=== PATIENT | male | born 1965 | race Caucasian/White ===

== ENCOUNTER 2022-08-06 00:47 | Day surgery (SDC) | payer BC, SELFPAY ==
[2022-07-23 16:03] VITALS: BMI 32.2
[2022-08-06 10:04] VITALS: BP 131/77; PULSE 72; RESP 18; TEMP 36.4; O2SAT 97; BMI 31.8
[2022-08-06] MEDS: LACTATED RINGERS 1,000 ML 150 ML IV CONT (10:16)
--- NOTE | 2022-08-06 10:37 | P.HP_ITS ---
History of Present Illness History of Present Illness Consent: Risks, benefits, and alternatives have been discussed and questions answered. Patient agrees to proceed with procedure. Chief complaint: neoplasm screening Narrative: Rio Walls is a 57 year old male Presents for screening colonoscopy. Patient reports weight appetite and bowel movements are normal. Patient notes vague for rectal discomfort that has been present off and on. Currently reso lved. His bowel habits essentially if remain normal. Family history is significant a sister has had colon polyps another sister had colon cancer. A niece had Crohn's disease. Patient presents today for screening colonoscopy. He denies any blood in his stools. Review of Systems Review of Systems: Review of systems noncontributory. FORMERLY [facility], [facility]–1983 Family History Family History Other Carcinoma of colon Diabetes mellitus Family history of cardiovascular disease Social History Social History Smoking status: Never smoker Alcohol intake: current Alcohol use details: 2-3 drinks yearly Substance use type: does not use Living arrangements: with family Spiritual care concerns: No Meds Home Medications and Allergies Home Medications Medication Instructions Recorded Confirmed Type ibuprofen 600 mg tablet 600 mg PO Q6H PRN Pain 07/23/22 07/23/22 History Allergies Allergy/AdvReac Type Severity Reaction Status Date / Time hydrocodone Allergy Unknown Nausea and Verified 08/06/22 10:03 Vomiting Vital Signs Vital Signs - 24 hr 08/06/22 10:04 Temperature 97.6 F Pulse Rate 72 Respiratory Rate 18 Blood Pressure 131/77 Pulse Oximetry 97 Oxygen Delivery Room Air Exam Narrative: Physical exam reveals patient to be alert. Vital signs stable. HEENT exam is unremarkable. Patient is anicteric. Lungs are clear to auscultation and percussion. Heart is without murmur or extra sounds. Abdomen bowel sounds are present soft nontender with no organomegaly. Digital external rectal exam is normal. Assessment and Plan Assessment and plan (1) Family hx of colon cancer: Code(s): Z80.0 - Family history of malignant neoplasm of digestive organs Status: Acute Assessment and Plan: Patient has a sister with colon cancer another sister with colon polyps. Plan for surveillance colonoscopy now and consider this at 5 year intervals in the future.
--- NOTE | 2022-08-06 11:05 | P.PNAN_ITS ---
Anes - Initial Pre Proc Eval Procedure: Operation Date: 08/06/22 11:15 Proposed Procedures p Screening Colonoscopy - Deangelo Espitia MD Date/Time: 08/06/22 11:05 Surgeon: Deangelo Espitia MD Pre Op Diagnosis: neoplasm screening Patient Data Age: 57 Gender: M Height: 1.88 m Weight: 112.3 kg Last Vital Signs Temp 97.6 F 08/06/22 10:04 Pulse 72 08/06/22 10:04 Resp 18 08/06/22 10:04 BP 131/77 08/06/22 10:04 Pulse Ox 97 08/06/22 10:04 O2 Del Method Room Air 08/06/22 10:04 Allergies Allergy/AdvReac Type Severity Reaction Status Date / Time hydrocodone Allergy Unknown Nausea and Verified 08/06/22 10:03 Vomiting Home Medications Medication Instructions Recorded Confirmed Type ibuprofen 600 mg tablet 600 mg PO Q6H PRN Pain 07/23/22 07/23/22 History Patient hx anesthesia problems: none Family hx anesthesia problems: none Results Review: All pre-operative results and documents have been reviewed as part of the pre- operative evaluation. [facility] Family History Family History Other Carcinoma of colon Diabetes mellitus Family history of cardiovascular disease Social History Social History Smoking status: Never smoker Alcohol intake: current Alcohol use details: 2-3 drinks yearly Substance use type: does not use Living arrangements: with family Spiritual care concerns: No Anes - Eval Final PreProcedure Day of Procedure 08/06/22 11:05 Patient weight: overweight Heart: regular rate and rhythm Lungs: clear to auscultation Airway: Mallampati scale class II Neurological: alert and oriented Last oral intake: >/= 8 hours ASA classification: II Emergent: no Anesthetic plan: proceed Anesthesia type and monitoring: general GIVS and standard monitoring Results Review: All pre-operative results and documents have been reviewed as part of the pre- operative evaluation. Informed Consent: The patient's anesthetic plan and its attendant risks and benefits were discussed with the patient/family/POA. Questions were solicited and answers provided to the satisfaction of the patient/family/POA.
[2022-08-06] MEDS: SIMETHICONE ORAL SUSPENSION 20 MG/0.3 ML 30 ML BOTTLE 0.6 ML IRRIGATION (11:22)
[2022-08-06 11:28] VITALS: BP 102/66; PULSE 62; RESP 17; O2SAT 95
[2022-08-06 11:38] VITALS: BP 106/73; PULSE 59; RESP 16; O2SAT 95
[2022-08-06 11:48] VITALS: BP 113/76; PULSE 57; RESP 15; O2SAT 96
== END 2022-08-06 11:59 | disposition home or self-care (01) ==
PROVIDERS: PCP Family Medicine Adolescent Medicine; Visit Provider Internal Medicine Gastroenterology
PROC: 0DJD8ZZ Inspection of Lower Intestinal Tract, Via Natural or Artificial Opening Endoscopic (ICD-10-PCS; CPT 45378; principal; 2022-08-06 11:15)
DX: Z12.11 Encounter for screening for malignant neoplasm of colon (principal); K64.8 Other hemorrhoids; Z80.0 Family history of malignant neoplasm of digestive organs; Z83.71 Family history of colonic polyps
CPT/HCPCS: 45378; J2704; J7120